=== PATIENT | female | born 1935 | race Caucasian/White ===

== ENCOUNTER 2018-08-13 19:40 | Emergency (ER) | payer MEDICARE, MEDICAID ==
[~2018-08-13] VITALS: Ht 157.5 cm; Wt 74.8 kg
--- NOTE | 2018-08-13 19:55 | NUR ---
BIB BY FAMILY. PT TO ER BED 3. AAOX4. NAD. BREATHING EVEN AND UNLABORED. AMBULATORY CAME IN WITH C/O DIZZYNESS AND WEAKNESS SINCE 12PM TODAY. AWAITING MD MUNSON.
--- NOTE | 2018-08-13 20:08 | NUR ---
URINE COLLECTED SENT TO LAB
[2018-08-13 20:14] LABS: BASOPHILS # (AUTO) 0.1 /CMM (0.0-0.2); BASOPHILS % (AUTO) 0.7 % (0.0-2.0); EOSINOPHILS % (AUTO) 1.6 % (0.0-6.0); HEMATOCRIT 37 % (33-45); HEMOGLOBIN 12.2 g/dL (11.5-14.8); LYMPHOCYTES # (AUTO) 1.9 /CMM (0.8-4.8); LYMPHOCYTES % (AUTO) 21.4 % (20.0-44.0); MEAN CORPUSCULAR HGB CONC 33 g/dl (31.0-36.0); MEAN CORPUSCULAR VOLUME 81 fL (82-100); MONOCYTES # (AUTO) 0.7 /CMM (0.1-1.30); NEUTROPHILS # (AUTO) 6.1 /CMM (1.8-8.9); NEUTROPHILS % (AUTO) 68.3 % (43.0-81.0); PLATELET COUNT (AUTO) 280 /CMM (150-450); RED BLOOD CELL COUNT(AUTO) 4.59 MIL/uL (4.0-5.2)
[2018-08-13 20:22] LABS: CARBON DIOXIDE 27 mmol/L (21-32); CHLORIDE 103 mmol/L (98-107); CREATININE 0.8 mg/dL (0.6-1.3); GLUCOSE 107 mg/dL (74-106); POTASSIUM 5.3 mmol/L (3.5-5.1); SODIUM SERUM 137 mmol/L (136-145); UREA NITROGEN, BLOOD 23 mg/dL (7-18)
[2018-08-13 20:23] LABS: APPEARANCE,URINE Clear (CLEAR); BILIRUBIN,URINE Negative (NEGATIVE); BLOOD, URINE Negative Ery/uL (NEGATIVE); COLOR,URINE Yellow (YELLOW); KETONES,URINE Trace (NEGATIVE); LEUKOCYTE ESTERASE ,URINE Negative (NEGATIVE); NITRITE, URINE Negative (NEGATIVE); PH,URINE 5.5 (5.0-8.0); PROTEIN,URINE Negative (NEGATIVE); UGLUCOSE Negative (NEGATIVE)
--- NOTE | 2018-08-13 20:27 | NUR ---
BS 110. NOTIFIED
[2018-08-13] MEDS ORDERED: IV NS 0.9% 1,000 ML BAG IV ONE (20:30)
[2018-08-13 20:33] LABS: BACTERIA,URINE Few /HPF (None Seen); RBC,URINE 0-2 /HPF (0-2); SQUAMOUS EPITHELIAL CELL,UR Moderate /HPF (None Seen); WBC,URINE 0-2 /HPF (0-3)
[2018-08-13 22:00] VITALS: BP 148/62
--- NOTE | 2018-08-13 22:01 | NUR ---
Patient discharged to home in stable condition. Written and verbal after care instructions given. Patient verbalizes understanding of instruction.
== END 2018-08-13 22:01 | disposition home or self-care (01) ==
LOC: ER 19:41
DX: E86.0 Dehydration (principal); R53.1 Weakness; I10 Essential (primary) hypertension; E78.5 Hyperlipidemia, unspecified; E11.9 Type 2 diabetes mellitus without complications; Z98.890 Other specified postprocedural states
CPT/HCPCS: 36415; 71045; 80048; 81001; 82962; 84484; 85025; 93005; 96360; 99284; J7030; 81000-TC

== ENCOUNTER 2022-09-02 17:48 | Inpatient (IN) | payer MEDICARE, OTHER ==
[~2022-09-02] VITALS: Ht 162.6 cm; Wt 61.2 kg
--- NOTE | 2022-09-02 19:10 | NUR ---
URINE SAMPLE OBTAINED USING STERILE TECHNIQUE STRAIGHT CATHETERIZATION, 15 MALAY GAINES. 30ML OF CLOUDY YELLOW URINE OBTAINED AND SENT TO LAB. PT TOLERATED WELL
[2022-09-02 19:28] LABS: BASOPHILS % (AUTO) 0.1 % (0.0-2.0); HEMATOCRIT 36 % (33-45); HEMOGLOBIN 11.1 g/dL (11.5-14.8); LYMPHOCYTES # (AUTO) 2.5 K/uL (0.8-4.8); LYMPHOCYTES % (AUTO) 20.8 % (20.0-44.0); MEAN CORPUSCULAR HGB CONC 31 g/dl (31.0-36.0); MEAN CORPUSCULAR VOLUME 86 fL (82-100); MONOCYTES # (AUTO) 0.6 K/uL (0.1-1.30); MONOCYTES % (AUTO) 5.3 % (2.0-12.0); NEUTROPHILS # (AUTO) 8.8 K/uL (1.8-8.9); NEUTROPHILS % (AUTO) 73.8 % (43.0-81.0); PLATELET COUNT (AUTO) 296 K/uL (150-450); RED BLOOD CELL COUNT(AUTO) 4.19 MIL/uL (4.0-5.2); WHITE BLOOD COUNT (AUTO) 11.9 K/uL (4.3-11.0)
[2022-09-02 19:35] LABS: CALCIUM, SERUM 7.4 mg/dL (8.5-10.1); CARBON DIOXIDE 28 mmol/L (21-32); CHLORIDE 99 mmol/L (98-107); CREATININE 1.8 mg/dL (0.6-1.3); GLUCOSE 96 mg/dL (74-106); POTASSIUM 5.2 mmol/L (3.5-5.1); SODIUM SERUM 134 mmol/L (136-145); UREA NITROGEN, BLOOD 50 mg/dL (7-18)
[2022-09-02 19:41] LABS: ALANINE AMINOTRANSFERASE 29 U/L (12-78); ALBUMIN 1.7 g/dL (3.4-5.0); ALKALINE PHOSPHATASE 108 U/L (46-116); ASPARTATE AMINOTRANSFERASE 41 U/L (15-37); BILIRUBIN,DIRECT 0.1 mg/dL (0.0-0.2); BILIRUBIN,TOTAL 0.7 mg/dL (0.2-1.0); TOTAL PROTEIN, SERUM 5.5 g/dL (6.4-8.2)
[2022-09-02 19:58] LABS: BILIRUBIN,URINE 1+ (NEGATIVE); COLOR,URINE YELLOW (YELLOW); LEUKOCYTE ESTERASE ,URINE 2+ (NEGATIVE); NITRITE, URINE NEGATIVE (NEGATIVE); PROTEIN,URINE TRACE mg/dl (NEGATIVE); UGLUCOSE NEGATIVE (NEGATIVE); UROBILINOGEN,URINE 0.2 EU/dL (0.2)
[2022-09-02] MEDS ORDERED: IV NS 0.9% 1,000 ML IV ONE (20:00)
[2022-09-02] MEDS ORDERED: IV NS 0.9% 1,000 ML BAG IV ONE ×2 (20:00→22:00)
--- NOTE | 2022-09-02 20:01 | NUR ---
COVID SWAB COLLECTED
[2022-09-02 20:06] LABS: BACTERIA,URINE 2+ /HPF (None Seen); SQUAMOUS EPITHELIAL CELL,UR 0-2 /HPF (None Seen); WBC,URINE 21-50 /HPF (0-3)
--- NOTE | 2022-09-02 20:36 | NUR ---
MOVE SHEET SUBMITTED.
--- NOTE | 2022-09-02 20:50 | NUR ---
CULTURES DRAWN BY LAB
[2022-09-02] MEDS ORDERED: CEFTRIAXONE 1GM BAG (ER ONLY) 1 GM/50 ML PIGGYBACK IV ONE (21:00)
[2022-09-02] MEDS ORDERED: VANCOMYCIN 1 GM in IV D5W 250 ML IV ONE (22:00)
[2022-09-02] MEDS ORDERED: VANCOMYCIN 1 GM /D5W 250 ML PB IV ONE (22:01)
--- NOTE | 2022-09-02 22:24 | NUR ---
PT TAKEN TO CT
--- NOTE | 2022-09-02 22:29 | NUR ---
REPORT GIVEN TO GURINDER LANDEROS, KEVIN
--- NOTE | 2022-09-02 22:33 | NUR ---
PT BACK FROM CT
--- NOTE | 2022-09-02 23:41 | NUR ---
LAB AT BEDSIDE
[2022-09-03] MEDS ORDERED: ONDANSETRON HCL/PF 4 MG/2 ML VIAL IVP PRN
[2022-09-03] MEDS ORDERED: ACETAMINOPHEN 325 MG TABLET PO PRN
[2022-09-03] MEDS ORDERED: Z GUARD REMEDY 4 OZ OINT TP PRN
--- NOTE | 2022-09-03 01:48 | NUR ---
PT MOVED TO [facility] 111-1
[2022-09-03] MEDS ORDERED: ZOSYN IVPB 3.375 G in IV D5W 50ml IV ONE (02:00)
[2022-09-03] MEDS: IV NS 0.9% 1,000 ML IV PRN ×2 (02:20→21:43)
--- NOTE | 2022-09-03 02:30 | NUR ---
MARKET DEVELOPMENT ANALYSTINFORMATION SPECIALIST NOTE RECEIVED REPORT FROM TIGRE NEAL. PATIENT CAME TO THE UNIT AT AROUND 0145 VIA STRETCHER, ACCOMPANIED BY 2 ER STAFFS AND DAUGHTER. PER REPORT, PATIENT WAS BROUGHT TO THE HOSPITAL D/T GENERALIZED WEAKNESS AND WAS NOTED WITH LOW BP AND ELEVATED LACTIC ACID. DIRECTED TO ROOM 111-1. PATIENT IS ALERT AND ORIENTED X2. VINCENTIAN SPEAKING. ABLE TO MAKE NEEDS KNOWN. AFEBRILE AND NOT IN ANY FORM OF ACUTE DISTRESS. BREATHING EVEN AND NON LABORED. NO C/O PAIN OR DISCOMFORT AT THIS TIME. WITH IV ACCESS ON R WRIST 20G AND STARTED WITH NS AT 75ML/HR ORDERED. MAINTAINED ON NPO, DAUGHTER MADE AWARE AND VERBALIZED UNDERSTANDING. EXPLAINED ADMISSION PROCESS WHICH INCLUDES SKIN ASSESSMENT, BOTH OF THEM AGREED. UPON INSPECTION, PATIENT WAS NOTED WITH MULTIPLE SKIN DISCOLORATION BUT SKIN IS INTACT. VALUABLES CHECKED AND PROPERLY DOCUMENTED TOGETHER WITH ASSIGNED STAFF. VITALS TAKEN AND FOLLOWS: BP- 95/52, P- 84, O2 SAT- 97% ON RA, T- 97.9, R-18. SAFETY MEASURES IN PLACE. KEPT BED IN LOCKED AND IN LOW POSITION. SIDE RAILS UP X2. ADVISED TO USE THE CALL LIGHT WHEN IN NEED OF ASSISTANCE.
[2022-09-03] MEDS ORDERED: PIPERACILLIN /TAZOBACTAM 3.375 G VIAL IV ONE (02:43)
[2022-09-03 03:09] VITALS: BP 95/52
[2022-09-03 04:00] VITALS: BP 82/36
--- NOTE | 2022-09-03 04:59 | NUR ---
STEREOTYPER APPRENTICE NOTE PATIENT NOTED WITH LOW BP 82/36 P- 75. BAT PERSON ASHBY NOTIFIED AND ORDERED FOR A BOLUS OF NS 500ML X1. ORDER NOTED AND CARRIED OUT.
[2022-09-03] MEDS ORDERED: IV NS 0.9% 500 ML IV ONE (05:00)
--- NOTE | 2022-09-03 05:33 | NUR ---
AWNING FRAME MAKER NOTE RECHECKED BP AFTER BOLUS OF NS 500ML WAS GIVEN. LATEST BP 113/47 P-79. NOT IN ANY FORM OF ACUTE DISTRESS. NO CHANGES IN MENTATION. DAUGHTER IS STILL AT BEDSIDE AND MADE AWARE OF THE LATEST STATUS OF HER MOM.
[2022-09-03 06:03] LABS: BASOPHILS % (AUTO) 0.3 % (0.0-2.0); EOSINOPHILS % (AUTO) 0.3 % (0.0-6.0); HEMATOCRIT 31 % (33-45); LYMPHOCYTES # (AUTO) 3.6 K/uL (0.8-4.8); LYMPHOCYTES % (AUTO) 28.9 % (20.0-44.0); MEAN CORPUSCULAR HGB CONC 32 g/dl (31.0-36.0); MEAN CORPUSCULAR VOLUME 83 fL (82-100); MONOCYTES # (AUTO) 1.2 K/uL (0.1-1.30); MONOCYTES % (AUTO) 9.7 % (2.0-12.0); NEUTROPHILS # (AUTO) 7.7 K/uL (1.8-8.9); NEUTROPHILS % (AUTO) 60.8 % (43.0-81.0); PLATELET COUNT (AUTO) 262 K/uL (150-450); RED BLOOD CELL COUNT(AUTO) 3.74 MIL/uL (4.0-5.2); WHITE BLOOD COUNT (AUTO) 12.6 K/uL (4.3-11.0)
[2022-09-03 06:29] LABS: ALANINE AMINOTRANSFERASE 24 U/L (12-78); ALKALINE PHOSPHATASE 95 U/L (46-116); ASPARTATE AMINOTRANSFERASE 29 U/L (15-37); BILIRUBIN,TOTAL 0.5 mg/dL (0.2-1.0); CALCIUM, SERUM 6.8 mg/dL (8.5-10.1); CARBON DIOXIDE 28 mmol/L (21-32); CHLORIDE 102 mmol/L (98-107); CREATININE 1.8 mg/dL (0.6-1.3); GLUCOSE 78 mg/dL (74-106); PHOSPHORUS 4.4 mg/dL (2.5-4.9); POTASSIUM 3.3 mmol/L (3.5-5.1); SODIUM SERUM 141 mmol/L (136-145); TOTAL PROTEIN, SERUM 4.4 g/dL (6.4-8.2); UREA NITROGEN, BLOOD 52 mg/dL (7-18)
--- NOTE | 2022-09-03 06:30 | NUR ---
MICA SPLITTER CLOSING NOTE PATIENT IN BED, ASLEEP BUT EASY TO AROUSE AND RESPONSIVE. ALERT AND ORIENTED X2. ABLE TO MAKE NEEDS KNOWN. AFEBRILE AND NOT IN ANY FORM OF ACUTE DISTRESS. BREATHING EVEN AND NON LABORED. NO C/O PAIN OR DISCOMFORT THROUGHOUT THE SHIFT. ON TELE MONITORING WITH CURRENT READING OF SR 72. MONITORED FOR EPISODE OF HYPOTENSION. WITH IV ACCESS ON R WRIST 20G RUNNING WITH NS AT 75ML/HR. MEDICATED ORDERED. ON IV ATB, MONITORED FOR ANY ADVERSE REACTION. SAFETY MEASURES IN PLACE. KEPT BED IN LOCKED AND IN LOW POSITION. SIDE RAILS UP X2. ADVISED TO USE THE CALL LIGHT WHEN IN NEED OF ASSISTANCE. ALL NURSING NEEDS ATTENDED. ENDORSED TO INCOMING SHIFT FOR CONTINUITY OF CARE.
[2022-09-03 06:43] LABS: CHOLESTEROL 122 mg/dL (<200); HDL CHOLESTEROL 50 mg/dL (40-60); LDL 70 mg/dL (0-99); TRIGLYCERIDES 66 mg/dL (30-150)
[2022-09-03 06:45] LABS: ALBUMIN 1.4 g/dL (3.4-5.0); MAGNESIUM 1.1 mg/dL (1.8-2.4)
--- NOTE | 2022-09-03 06:55 | NUR ---
IT INFRASTRUCTURE MANAGER NOTE RECEIVED A CALL FROM LAB AND INFORMED THAT PATIENT'S LATEST ALBUMIN LEVEL WENT DOWN FROM 1.4 TO 1.4 AND MG LEVEL IS 1.1 NOTIFIED ALISE LOPEZ AND CN AARON. PER CN SOON, SHE WILL INFORM MD SINCE IT IS ALMOST CHANGE OF SHIFT. ENDORSED TO INCOMING NURSE.
[2022-09-03 08:00] VITALS: BP 149/52
--- NOTE | 2022-09-03 08:01 | NUR ---
RN OPENING NOTE RECEIVED PATIENT IN BED, AO X 2, CONFUSED. ABLE TO RESPONDS ALL PHYSICAL STIMULI. RESPIRATORY EVEN AND UNLABORED IN ROOM AIR, IN NO ACUTE RESPIRATORY DISTRESS OBSERVED. SKIN IS WARM TO TOUCH, KEEP CLEAN/DRY. KEPT ELEVATED HOB FOR ASPIRATION PRECAUTION AND ENSURE AIRWAY, ALSO LOWEST BED POSITIONED. BED ALARM IS ON AT ALL TIMES FOR SAFETY. CALL LIGHT WITHIN REACH, WILL CONTINUE TO MONITOR.
[2022-09-03] MEDS: PANTOPRAZOLE 40 MG VIAL IV SCH (08:52)
--- NOTE | 2022-09-03 09:33 | NUR ---
PATIENT NOTED MAGNESIUM 1.1 AND POTASSIUM 3.3 LEVELS IS LOW, INFORMED MD, WHO WILL PLACE NEW ORDER.
[2022-09-03] MEDS ORDERED: POTASSIUM CL. PREMIX PERIPHER. 50 ML IV SCH (10:30)
[2022-09-03] MEDS ORDERED: OMEP20TA5 PO (10:41)
[2022-09-03] MEDS ORDERED: METF-440 PO (10:41)
[2022-09-03] MEDS ORDERED: ESCI10TA PO (10:41)
[2022-09-03] MEDS ORDERED: DONE10TA44 PO (10:41)
[2022-09-03] MEDS ORDERED: DORZ10DR11 LEFTEYE (10:41)
[2022-09-03] MEDS ORDERED: LISI10TA29 PO (10:41)
[2022-09-03] MEDS ORDERED: ROSU20TA32 PO (10:41)
[2022-09-03] MEDS ORDERED: CLOP75TA15 PO (10:41)
[2022-09-03] MEDS ORDERED: LATA2.5D15 LEFTEYE (10:41)
[2022-09-03] MEDS ORDERED: METO25TA4 PO (10:41)
[2022-09-03] MEDS ORDERED: POTA10TA10 PO (10:41)
[2022-09-03] MEDS ORDERED: METO2.5T7 PO (10:41)
[2022-09-03] MEDS ORDERED: ASPI-1420 PO (10:41)
[2022-09-03] MEDS ORDERED: FURO40TA5 PO (10:41)
[2022-09-03] MEDS ORDERED: Magnesium 1GM/D5W 100ML PREMIX PIGGYBACK IV ONE (11:00)
[2022-09-03 12:00] VITALS: BP 134/61
[2022-09-03] MEDS: PIPERACILLIN /TAZOBACTAM 3.375 G in IV D5W 100 ML IV SCH (13:16)
[2022-09-03 16:00] VITALS: BP 106/40
--- NOTE | 2022-09-03 18:00 | NUR ---
RN CLOSING NOTE PATIENT RESTING IN BED. IN NO ACUTE DISTRESS OBSERVED. RESPIRATORY EVEN AND UNLABORED IN ROM AIR. SKIN IS WARM TO TOUCH KEEP CLEAN/DRY. KEPT ELEVATED HOB FOR ENSURE AIRWAY/ASPIRATION PRECAUTION, AND LOWEST BED POSITION. BED ALARM IS ON ALL TIMES FOR SAFETY. CALL LIGHT WITHIN REACH, WILL ENDORSE TELEPHONE DIAPHRAGM ASSEMBLER.
--- NOTE | 2022-09-03 19:00 | NUR ---
ROLL GRINDER OPENING NOTE PATIENT IS IN BED, WITH HER FAMILY MEMBERS AT HER BEDSIDE. SHE IS FARSI SPEAKING, AO X 2, PT IS ON EXTERNAL CARBIDE OPERATOR, ON THE MONITOR, HER HEART RHYTHM IS SR WITH HR AT 80S. PT IV ACCESS AT HER R WRIST, #20G,, INFUSING NS @75 ML/HR. IV SITE IS PATENT AND INTACT. PT IS ON RA, TOLERATED WELL. NO S/S OF DIGRESS. PT DENIES OF HAVING PAIN AT THIS MOMENT. SAFETY MEASURES ARE IN PLACED: BED IN LOWEST AND LOCKED POSITION; SIDE RAILS UP X 2; CALL LIGHT AND TABLE ARE WITHIN REACH. WILL CONTINUE MONITORING THE PT AND PROVIDE THE CARE PT NEEDS.
[2022-09-03 20:00] VITALS: BP 110/55
[2022-09-03 21:20] LABS: ABG BASE EXCESS 0.5 mmol/L; ABG PCO2 34.1 mmHg (35.0-45.0); ABG PH 7.463 (7.350-7.450); ABG PO2 76.6 mmHg (75.0-100.0); AaDO2 32.3 mmHg; COHb 0.7 % (0.5-1.5); MetHb 0.3 % (0.0-1.5); O2Hb 93.1 % (94.0-97.0); SITE, ABG Left Radial; VENT MODE, BG ROOM AIR
[2022-09-03] MEDS ORDERED: TEMAZEPAM 7.5 MG CAPSULE PO PRN (22:00)
[2022-09-04] VITALS: BP 118/53
[2022-09-04] MEDS: PIPERACILLIN /TAZOBACTAM 3.375 G in IV D5W 100 ML IV SCH ×2 (01:17→02:50)
[2022-09-04 04:00] VITALS: BP 109/55
--- NOTE | 2022-09-04 06:20 | NUR ---
STAGE SETTINGS PAINTER CLOSING NOTE PATIENT IS SLEEPING IN BED, EASILY BEING AROUSED. HER DAUGHTER HAS BEEN AT HER BEDSIDE THROUGH THE NIGHT. PT IS ON EXTERNAL PAROLE BOARD MEMBER, ON THE MONITOR, HER HEART RHYTHM IS SR WITH HR AT 80S. PT HAS IV ACCESS AT HER R WRIST, #20G,, INFUSING NS @75 ML/HR. IV SITE IS PATENT AND INTACT. PT IS ON RA, TOLERATED WELL. NO S/S OF DIGRESS. PT DENIES OF HAVING PAIN AT THIS MOMENT. PT HAS BEEN ON NPO DURING THE SHIFT. SAFETY MEASURES ARE IN PLACED: BED IN LOWEST AND LOCKED POSITION; SIDE RAILS UP X 2; CALL LIGHT AND TABLE ARE WITHIN REACH. WILL ENDORSE NEXT SHIFT NURSE FOR CONTINUING PT CARE.O
[2022-09-04 07:33] LABS: CALCIUM, SERUM 6.9 mg/dL (8.5-10.1); CARBON DIOXIDE 27 mmol/L (21-32); CHLORIDE 106 mmol/L (98-107); CREATININE 1.7 mg/dL (0.6-1.3); GLUCOSE 89 mg/dL (74-106); POTASSIUM 3.1 mmol/L (3.5-5.1); SODIUM SERUM 140 mmol/L (136-145); UREA NITROGEN, BLOOD 46 mg/dL (7-18)
[2022-09-04 08:00] VITALS: BP 101/45
[2022-09-04] MEDS: PANTOPRAZOLE 40 MG VIAL IV SCH (09:28)
--- NOTE | 2022-09-04 10:37 | NUR ---
RN NOTE PATIENT LEFT VIA BED ACCOMPANIED BY AMAURY GARAY FOR X-RAY AT THIS TIME. SON IS AT BEDSIDE.
[2022-09-04] MEDS ORDERED: DIATR MEGLU/DIATRIZOATE SODIUM 120 ML BOTTLE (GASTROGRAPHIN) ONE (10:39)
--- NOTE | 2022-09-04 11:09 | NUR ---
RN NOTE PATIENT RETURNED TO ROOM, REFUSED XRAY. SON TRIED TO ASK PATIENT TO CONVINCE MOM, DAUGHTER JACIEL CALLED AND IS COMING TO CONVINCE MOM TO GO TO XRAY.
--- NOTE | 2022-09-04 11:57 | NUR ---
PT BROUGHT DOWN FOR UPPER GI PUT ON TABLE THAN SHE REFUSED PROCEDURE , PT SON AND DR WESTON TRANSLATED AND STILL REFUSED, RN EAMON LEVY
[2022-09-04 12:00] VITALS: BP 117/81
[2022-09-04] MEDS: POTASSIUM CL. PREMIX PERIPHER. 50 ML IV SCH (12:44)
[2022-09-04] MEDS ORDERED: IV NS 0.9% 1,000 ML IV PRN (14:51)
[2022-09-04 16:00] VITALS: BP 124/88
--- NOTE | 2022-09-04 16:39 | NUR ---
RN NOTE MIDLINE ORDERED PER MD, WAITING FOR MIDLINE NURSE AT THIS TIME. CHARGE NURSE AWARE, NURSING VALVE LAPPER NOTIFIED.
[2022-09-04] MEDS: TIMOLOL MAL/DORZOLAM HCL OPHTH 10 ML BOTTLE LEFTEYE SCH (17:52)
--- NOTE | 2022-09-04 17:58 | NUR ---
RN NOTE PER CHARGE NURSE, MIDLINE WILL BE INSERTED DURING HAT MODEL AT 0200. NOTIFIED FAMILY AT BEDSIDE. WILL ENDORSE TO HAT MODEL.
[2022-09-04 20:00] VITALS: BP 133/67
--- NOTE | 2022-09-04 20:27 | NUR ---
AUTO LOCATOR CLOSING NOTE PATIENT IS SLEEPING IN BED, EASILY BEING AROUSED. HER SON AT BEDSIDE. PT IS ON EXTERNAL COD CLERK, ON THE MONITOR, HER HEART RHYTHM IS SR WITH HR AT 80S. PT HAS ORDER FOR MIDLINE, TO BE INSERTED DURING CONSTRUCTION ELECTRICIAN. PT HAS PUREWICK IN PLACE DRAINING YELLOW URINE. PT DENIES OF HAVING PAIN AT THIS MOMENT. PT HAS BEEN ON NPO DURING THE SHIFT. SAFETY MEASURES ARE IN PLACED: BED IN LOWEST AND LOCKED POSITION; SIDE RAILS UP X 2; CALL LIGHT AND TABLE ARE WITHIN REACH. WILL ENDORSE NEXT SHIFT NURSE FOR CONTINUING PT CARE.O
[2022-09-04] MEDS: LATANOPROST EYE DROP 0.005% 2.5 ML BOTTLE LEFTEYE SCH (21:57)
[2022-09-04] MEDS ORDERED: VANCOMYCIN 1 GM in IV D5W 250 ML IV SCH (22:00)
--- NOTE | 2022-09-04 22:09 | NUR ---
RECEIVED A CALL FROM FABIO FROM [facility], [place], [facility], TO ASK FOR UPDATE FOR PATIENT, REPORT GIVEN REGARDING PATIENT, NOT BED AVAILABLE AT THIS TIME YET.
[2022-09-05] VITALS: BP 141/67
[2022-09-05] MEDS: POTASSIUM CL. PREMIX PERIPHER. 50 ML IV SCH ×2 (00:23→02:01)
[2022-09-05] MEDS: PIPERACILLIN /TAZOBACTAM 3.375 G in IV D5W 100 ML IV SCH ×2 (02:30→13:04)
[2022-09-05 04:00] VITALS: BP 119/54
[2022-09-05] MEDS: Magnesium 1GM/D5W 100ML PREMIX 100 ML IV SCH ×4 (04:05→20:22)
--- NOTE | 2022-09-05 06:25 | NUR ---
END OF SHIFT, PATIENT IN BED, AT ROOM AIR, NO SOB/ACUTE DISTRESS DURING THE NIGHT, POTASSIUM AND MAGNESIUM REPLACED ONCE MIDLINE WAS INSERTED, WELL ANTIBIOTICS, CONTINUE ON IV FLUIDS ORDERED, NPO STATUS AT THIS TIME, CALL FROM [facility] TO FOLLOW UP AND GIVE UPDATE FOR PATIENT, BUT FABIO FROM TRANSFER STATED THAT THERE'S NO BED AVAILABLE YET, ALL SAFETY PRECAUTIONS IN PLACE, CALL LIGHT W/I REACH, WILL ENDORSE CONTINUITY OF CARE TO ONCOMING NURSE.
[2022-09-05 06:52] LABS: CALCIUM, SERUM 7.1 mg/dL (8.5-10.1); CARBON DIOXIDE 29 mmol/L (21-32); CHLORIDE 106 mmol/L (98-107); CREATININE 1.5 mg/dL (0.6-1.3); GLUCOSE 95 mg/dL (74-106); POTASSIUM 3.5 mmol/L (3.5-5.1); SODIUM SERUM 139 mmol/L (136-145); UREA NITROGEN, BLOOD 33 mg/dL (7-18)
--- NOTE | 2022-09-05 07:54 | NUR ---
television audio engineer opening note received pt awake in bed.alert and oriented x2 farsi speaking. on tele monitor currently at sinus rhytm, pt has left upper arm midline. iv intact, patent and flushing well. pt currently npo at this time. all safety measures in place.call light within reach. bed locked at lowest position. side rails up x2.. call light within reach. bed alarm on
[2022-09-05 08:00] VITALS: BP 108/64
[2022-09-05] MEDS: PANTOPRAZOLE 40 MG VIAL IV SCH (08:09)
[2022-09-05] MEDS: FUROSEMIDE 40 MG/4 ML VIAL IV SCH (08:11)
[2022-09-05 12:00] VITALS: BP 110/38
[2022-09-05] MEDS: TIMOLOL MAL/DORZOLAM HCL OPHTH 10 ML BOTTLE LEFTEYE SCH ×2 (13:39→16:14)
[2022-09-05 16:00] VITALS: BP 118/35
--- NOTE | 2022-09-05 19:42 | NUR ---
telephone claims representative closing note received pt awake in bed.alert and oriented x2 farsi speaking. on tele monitor currently at sinus rhytm, pt has left upper arm midline. iv intact, patent and flushing well. pt currently npo at this time. family at bedside all safety measures in place.call light within reach. bed locked at lowest position. side rails up x2.. call light within reach. bed alarm on.endorsed to front office secretary rn for contuity of care
--- NOTE | 2022-09-05 20:56 | NUR ---
RN OPENING NOTE RECEIVED PATIENT IN BED ALERT AND ORIENTED X2, FAMILY AT BED SIDE, ASKING ABOUT PATIENT TRANSFER TO [facility], INFORMED FAMILY THAT DISTRICT EXTENSION SERVICE AGENT AWARE AND AWAITING BED TO BE AVAILABLE. PATIENT WAS ADMITTED FROM HOME FOR DX DUI. PATIENT STABLE, CALL LIGHT WITHIN REACH, ALL SAFETY MEASURES IN PLACE, WILL CONTINUE TO MONITOR
[2022-09-05] MEDS: LATANOPROST EYE DROP 0.005% 2.5 ML BOTTLE LEFTEYE SCH (21:53)
--- NOTE | 2022-09-05 21:55 | NUR ---
2144 Beverly from [facility] transfer center called and asked for update on patient. Updated on patient's current condition. Informed her that patient's family is concerned about transfer status and per Beverly still no bed available. Will inform case management in the morning of update.
[2022-09-05] MEDS ORDERED: VANCOMYCIN 0.75 GM in IV D5W 250 ML IV SCH (22:00)
[2022-09-05 22:30] VITALS: BP 141/61
[2022-09-06] VITALS: BP 120/71
[2022-09-06] MEDS: PIPERACILLIN /TAZOBACTAM 3.375 G in IV D5W 100 ML IV SCH ×2 (01:54→14:00)
[2022-09-06 04:00] VITALS: BP 138/70
--- NOTE | 2022-09-06 06:28 | NUR ---
RN CLOSING NOTE received pt awake in bed.alert and oriented x2 farsi speaking. on tele monitor currently at sinus rhytm, pt has left upper arm midline. iv intact, patent and flushing well. pt currently npo at this time. family at bedside all safety measures in place.call light within reach. bed locked at lowest position. side rails up x2.. call light within reach. bed alarm on, pt waiting for available bed in [facility] cm aware, family aware will endorse to AM rn for contuity of care
--- NOTE | 2022-09-06 06:29 | NUR ---
RN CLOSING NOTE 116-2 PATIENT IN BED SLEEPING, FAMILY AT BED SIDE, PT RMAIR NO SOB NO ACUTE DISTRESS, VITALS STABLE, NO CHANGE IN CONDITION, ALL SAFETY MEASURES RENDERRED, DENIES PAIN, WILL ENDORCE LOUIE TO AM SHIFT. Addendum: 09/06/22 at 0630 by ROBERTA MCNAMARA LVN ERROR
--- NOTE | 2022-09-06 07:20 | NUR ---
RN OPENING NOTE RECEIVED PATIENT IN BED ASLEEP. EASILY AWAKENED. NO SIGNS OF ACUTE DISTRESS NOTED. ON ROOM AIR, BREATHING EVEN AND UNLABORED. ON WINDOW CUTTER SHOWING SINUS RHYTHM. WITH IV ACCESS ON RIGHT UPPER ARM MIDLINE WITH IV FLUIDS ON NS RUNNING @90 MH/HR. PATIENT REMAINS ON NPO. SAFETY MEASURE IN PLACE. BED IN LOW AND LOCKED POSITION, SIDE RAILS UP X2, CALL LIGHT PLACED WITHIN EASY REACH. WILL CONTINUE TO MONITOR PATIENT.
[2022-09-06 07:29] LABS: BASOPHILS % (AUTO) 0.7 % (0.0-2.0); EOSINOPHILS % (AUTO) 2.4 % (0.0-6.0); HEMATOCRIT 31 % (33-45); HEMOGLOBIN 10.1 g/dL (11.5-14.8); LYMPHOCYTES # (AUTO) 1.6 K/uL (0.8-4.8); LYMPHOCYTES % (AUTO) 23.5 % (20.0-44.0); MEAN CORPUSCULAR HGB CONC 33 g/dl (31.0-36.0); MEAN CORPUSCULAR VOLUME 84 fL (82-100); MONOCYTES # (AUTO) 0.6 K/uL (0.1-1.30); MONOCYTES % (AUTO) 8.7 % (2.0-12.0); NEUTROPHILS # (AUTO) 4.5 K/uL (1.8-8.9); NEUTROPHILS % (AUTO) 64.7 % (43.0-81.0); PLATELET COUNT (AUTO) 275 K/uL (150-450); RED BLOOD CELL COUNT(AUTO) 3.65 MIL/uL (4.0-5.2); WHITE BLOOD COUNT (AUTO) 6.9 K/uL (4.3-11.0)
[2022-09-06 07:51] LABS: CALCIUM, SERUM 7.4 mg/dL (8.5-10.1); CARBON DIOXIDE 29 mmol/L (21-32); CHLORIDE 103 mmol/L (98-107); CREATININE 1.2 mg/dL (0.6-1.3); GLUCOSE 94 mg/dL (74-106); POTASSIUM 3.2 mmol/L (3.5-5.1); SODIUM SERUM 136 mmol/L (136-145); UREA NITROGEN, BLOOD 23 mg/dL (7-18)
[2022-09-06 08:00] VITALS: BP 130/58
[2022-09-06] MEDS: PANTOPRAZOLE 40 MG VIAL IV SCH (08:22)
[2022-09-06] MEDS: FUROSEMIDE 40 MG/4 ML VIAL IV SCH (08:22)
[2022-09-06] MEDS: TIMOLOL MAL/DORZOLAM HCL OPHTH 10 ML BOTTLE LEFTEYE SCH (08:23)
[2022-09-06] MEDS: POTASSIUM CL. PREMIX PERIPHER. 50 ML IV SCH ×4 (11:19→14:30)
[2022-09-06 12:00] VITALS: BP 123/75
[2022-09-06] MEDS ORDERED: AMOX-430 PO (14:12)
--- NOTE | 2022-09-06 15:40 | NUR ---
LITHOGRAPHIC PROOFER APPRENTICE NOTE PATIENT DISCHARGED HOME IN STABLE CONDITION. PATIENT REMAINS AWAKE, ALERT AND VERBALLY RESPONSIVE. IV ACCESS REMOVED, PRESSURE DRESSING APPLIED TO SITE, NO BLEEDING NOTED. ARM NAME BAND REMOVED. PATIENT DOESN'T HAVE BELONGINGS. EXIT CARE FOLDER GIVEN TO PATIENT'S SON AND DAUGTER. HEALTH TEACHINGS AND DISCHARGE INSTRUCTIONS PROVIDED. FORMS SIGNED BY SON. ACCOMPANIED PT TO THE LOBBY VIA W/C. SON PICKED UP PATIENT VIA PRIVATE CAR. CN AWARE OF DISCHARGE.
== END 2022-09-06 15:36 | disposition home or self-care (01) | DRG 871 ==
LOC: ER 17:56 → TELE1 22:17 → MEDSG1 09-06 13:42
PROVIDERS: ADMIT Nurse Practitioner Family; ATTEND Nurse Practitioner Acute Care
PROC: 05HF33Z Insertion of Infusion Device into Left Cephalic Vein, Percutaneous Approach (ICD-10-PCS; principal; 2022-09-05)
DX: A41.9 Sepsis, unspecified organism (principal); E43 Unspecified severe protein-calorie malnutrition; N17.0 Acute kidney failure with tubular necrosis; K63.1 Perforation of intestine (nontraumatic); K56.2 Volvulus; N39.0 Urinary tract infection, site not specified; E87.1 Hypo-osmolality and hyponatremia; J90 Pleural effusion, not elsewhere classified; R65.20 Severe sepsis without septic shock; Z20.822 Contact with and (suspected) exposure to COVID-19; N18.9 Chronic kidney disease, unspecified; I12.9 Hypertensive chronic kidney disease with stage 1 through stage 4 chronic kidney disease, or unspecified chronic kidney disease; E88.09 Other disorders of plasma-protein metabolism, not elsewhere classified; E78.5 Hyperlipidemia, unspecified; E11.22 Type 2 diabetes mellitus with diabetic chronic kidney disease; K44.9 Diaphragmatic hernia without obstruction or gangrene; R60.9 Edema, unspecified; B96.89 Other specified bacterial agents as the cause of diseases classified elsewhere; E83.42 Hypomagnesemia; E86.0 Dehydration; J98.4 Other disorders of lung; K31.89 Other diseases of stomach and duodenum; Z95.5 Presence of coronary angioplasty implant and graft; E87.5 Hyperkalemia; E87.6 Hypokalemia
CPT/HCPCS: 36410; 36415; 36600; 71045-TC; 71250-TC; 76770-TC; 80048-TC; 80053-TC; 80061-TC; 80076-TC; 81001; 83605-TC; 83735-TC; 83880; 84100-TC; 84443-TC; 84484-TC; 85025-TC; 86803; 87040-TC; 87081-TC; 87086-TC; 87806; 93970-TC; 97112-TC; 97116-TC; 97530-TC; A4223; C9113; C9803; G0378; J0696; J1940; J2543; J3370; J3475; J3480; J7030; J7040; J7060; Q9963